=== PATIENT | male | born 1960 | race Caucasian/White ===

== ENCOUNTER 2024-01-06 16:29 | Emergency (ER) | payer BC, SELFPAY ==
[2024-01-06 16:35] VITALS: BP 146/87
--- NOTE | 2024-01-06 17:07 | ED.GENMED ---
History of Present Illness
General
Chief Complaint: Skin Problem
Time Seen by Provider: 01/06/24 17:06
History of Present Illness
History of Present Illness:
HPI: The patient presents due to bleeding of the distal right lower extremity. He is on Eliquis for history of factor V Leiden, DVT, PE. He has no significant pain. There is no significant injury. However, he was doing some manual work recently.
EXAM:
GENERAL: Well appearing in no distress
HEENT: Moist oral mucosa
NEUROLOGIC: Excellent strength all extremities, no obvious coordination deficits
PSYCHIATRIC: Appropriate mental status, normal insight and judgement
EXTREMITIES: Bilateral edema noted, see below
SKIN: Superficial varicosities noted to the right foot and ankle, there is a small area of active bleeding that is easily controlled with pressure
TIME OF INITIAL ENCOUNTER: 5:15 PM
NUMBER AND COMPLEXITY OF PROBLEMS ADDRESSED AT THE ENCOUNTER
� Chronic conditions affecting care: Chronic bronchitis, history of PE, CAD, high blood pressure, hyperlipidemia, GERD, diabetes, vasculitis
� Acute Exacerbation and/or Progression of Chronic Illness: This is an acute problem
� Differential Diagnosis includes: Varicose vein rupture, coagulopathy
AMOUNT AND/OR COMPLEXITY OF DATA TO BE REVIEWED AND ANALYZED
� I performed an independent evaluation of and my interpretation is:
EKG:
CT:
X-rays:
Laboratory Studies:
Other:
� Review of other/old records: I reviewed records, arterial study from 2019 ultrasound of the right lower extremity unremarkable
� Clinical information was obtained by an independent historian: I spoke to at bedside
� Prescriptions/Medications Considered but not given:
� Further testing considered but not performed:
RISK OF COMPLICATIONS AND/OR MORBIDITY OR MORTALITY OF PATIENT MANAGEMENT
� Social determinants of health affecting care: Lives at home
� Discussion with other providers:
� Escalation of care including admission/observation vs risk of discharge considered: I took the old dressing off and placed a new Surgicel pressure dressing with excellent hemostasis. I also give the patient additional supplies
if needed at home.
Past History
Past History
ED Past Medical History: Other (DVT, PE , Leiden factor 5)
ED Past Surgical History: None
Social History
Tobacco: Former smoker
Alcohol: None
Drug: None
Personal: Single
Living: with family
Employment: Employed
Family History
Family History: Other
Phy Exam
Physical Exam
Physical Exam:
See HPI
Course
Vital Signs
Initial and Last Documented VS:
Initial Vital Signs
Temp Pulse Resp BP Pulse Ox
98.3 F 98 20 146/87 95
01/06/24 16:35 01/06/24 16:35 01/06/24 16:35 01/06/24 16:35 01/06/24 16:35
Last Documented Vital Signs
Temp Pulse Resp BP Pulse Ox
98.3 F 98 20 146/87 95
01/06/24 16:35 01/06/24 16:35 01/06/24 16:35 01/06/24 16:35 01/06/24 16:35
*Critical Care Note
Total Time (30-74mins, 75-104mins- exclusive of procedures): Not Applicable
ED Attending Note
-
Portions of this chart may have been created with voice recognition software.� Occasional wrong word or��sound alike� substitutions may have occurred due to the inherent limitations of voice recognition software.
Discharge Plan
Departure
Patient Disposition: Home (Routine Discharge)
Date of Disposition: 01/06/24
Time of Disposition: 17:40
Patient with high blood pressure during this ER visit?: Yes
Discharge Problem:
Varicose vein of leg, Hemorrhage
Instructions: Varicose veins and other vein disease in the legs, Varicose Veins (DC)
Prescriptions:
No Action
atorvastatin 80 MG tablet
80 mg PO QPM Qty: 30 3RF
nitroglycerin 0.4 MG tablet, sublingual
0.4 mg sublingual [id number] PRN (Reason: chest pain) Qty: 25 3RF
carvedilol 6.25 MG tablet
6.25 mg PO BID Qty: 60 3RF
furosemide 40 MG tablet
40 mg PO DAILY Qty: 30 3RF
metformin 500 MG tablet
500 mg PO BID
clopidogrel 75 MG tablet
75 mg PO DAILY
potassium chloride [Klor-Con M20] 20 MEQ tablet,ER particles/crystals
20 meq PO DAILY
apixaban [Eliquis] 5 MG tablet
5 mg PO BID
lisinopril 5 MG tablet
10 mg PO BID
loteprednol etabonate [Lotemax] 5 ML drops,suspension
2.5 ml RIGHT EYE ONCE
Patient Comments:
Pt instilled x3 prior to arriving to hospital for surgery today 10/22/20. WM
bromfenac [Prolensa] 3 ML drops
1.6 ml RIGHT EYE ONCE
Patient Comments:
Pt instilled x1 prior to arriving to hospital for surgery today 10/22/20. BESIVANCE, PROLENSA , LOTEMAX . WM
Referrals:
Gunnar Cueto DO [Family Provider] -
Activity Restrictions/Additional Instructions:
I have given you more materials to use if bleeding recurs. Return here if worse. Try to keep the leg elevated is much as possible.
Interventions
Interventions:
*Risk Screen - Suicide Last Done: 01/06/24 16:35
*General Assessment Last Done: 01/06/24 16:35
*Neglect/Abuse Screening Last Done: 01/06/24 16:35
ED- Fall Risk Assessment Last Done: 01/06/24 17:13
*ED COVID-19 Vaccine History Last Done: 01/06/24 17:13
ED-Skin Assessment Last Done: 01/06/24 17:15
Discharge Date and Time
Print Language: ALBANIAN
[2024-01-06 17:13] VITALS: BMI 47.1
--- NOTE | 2024-01-06 17:58 | EDRN ---
Reviewed discharge instructions with patient. Verbalized understanding. Ambulated with steady gait to the lobby.
[2024-01-06 17:59] VITALS: BP 113/69
== END 2024-01-06 17:50 | disposition home or self-care (01) ==
LOC: EMR 16:29
PROVIDERS: EMERGENCY PHYSICIAN Emergency Medicine; FAMILY PHYSICIAN Family Medicine
DX: I83.891 Varicose veins of right lower extremity with other complications (principal); D68.51 Activated protein C resistance; Z79.01 Long term (current) use of anticoagulants; Z86.718 Personal history of other venous thrombosis and embolism; Z87.891 Personal history of nicotine dependence
CPT/HCPCS: 99282

== ENCOUNTER → 2024-04-23 08:30 | Outpatient (REF) | payer BC, SELFPAY | LOC: RCS 08:30 | PROVIDERS: ATTENDING PHYSICIAN Internal Medicine Cardiovascular Disease; FAMILY PHYSICIAN Family Medicine | DX: I50.32 Chronic diastolic (congestive) heart failure (principal) | CPT/HCPCS: 93307; Q9957 ==

== ENCOUNTER → 2024-09-07 10:52 | Outpatient (REF) | payer BC, SELFPAY | LOC: RAD 10:52 | PROVIDERS: ATTENDING PHYSICIAN Family Medicine | DX: M25.551 Pain in right hip (principal) | CPT/HCPCS: 72110; 73030; 73522 ==

== ENCOUNTER → 2024-09-17 13:14 | Outpatient (REF) | payer BC, SELFPAY ==
[2024-09-17 13:47] LABS: % Basophils 0.5 % (0-2); % Eosinophils 0.6 % (0-6); % Immature Granulocytes 0.4 % (0-0.5); % Lymphocytes 18.2 % (20.5-51.1); % Monocytes 8.7 % (1.7-9.3); % Neutrophils 71.6 % (42.2-75.2); Absolute Basophils 0.1 10^3/uL (0-0.2); Absolute Eosinophils 0.1 10^3/uL (0-0.7); Absolute Lymphocytes 1.9 10^3/uL (1.2-3.4); Absolute Monocytes 0.9 10^3/uL (0.1-0.6); Absolute Neutrophils 7.5 10^3/uL (1.4-6.5); Hematocrit 39.5 % (39.0-52.0); Hemoglobin 12.4 g/dL (13.0-18.0); Mean Corp Hgb Conc. 31.4 g/dL (33.0-37.0); Mean Corpuscular Hgb 30.2 pg (27.0-31.0); Mean Corpuscular Volume 96.1 fL (80.0-94.0); Mean Platelet Volume 8.9 fL (7.4-10.4); Nucleated Red Blood Cells % 0 % (-); Platelet Count 394 10^3/uL (130-400); Red Blood Cell Count 4.11 10^6/uL (4.70-6.10); Red Cell Dist. Width 13.2 % (11.5-14.5); White Blood Cell Count 10.4 10^3/uL (4.8-10.8)
[2024-09-17 14:11] LABS: Erythrocyte Sed Rate 33 mm/hour (0-20)
== END ==
LOC: REG 13:14
PROVIDERS: ATTENDING PHYSICIAN Student in an Organized Health Care Education/Training Program; FAMILY PHYSICIAN Family Medicine
DX: M25.552 Pain in left hip (principal)
CPT/HCPCS: 36415; 85025; 85652; 86140

== ENCOUNTER → 2024-09-18 13:16 | Outpatient (REF) | payer BC, SELFPAY ==
[2024-09-18 13:39] VITALS: BP 125/71; BP_SYST 103
[2024-09-18 14:27] VITALS: BP 130/75
== END ==
LOC: RADI 13:16
PROVIDERS: ATTENDING PHYSICIAN Student in an Organized Health Care Education/Training Program; FAMILY PHYSICIAN Family Medicine
DX: M25.551 Pain in right hip (principal); M16.11 Unilateral primary osteoarthritis, right hip
CPT/HCPCS: 20610; 77002; 87015; 87070; 87075; 87205

== ENCOUNTER → 2024-12-17 10:22 | Outpatient (REF) | payer BC, SELFPAY ==
[2024-12-17 11:00] LABS: % Basophils 0.6 % (0-2); % Eosinophils 0.9 % (0-6); % Immature Granulocytes 0.6 % (0-0.5); % Lymphocytes 17.8 % (20.5-51.1); % Monocytes 7.7 % (1.7-9.3); % Neutrophils 72.4 % (42.2-75.2); Absolute Basophils 0.1 10^3/uL (0-0.2); Absolute Eosinophils 0.1 10^3/uL (0-0.7); Absolute Immature Granulocytes 0.1 10^3/uL (0-0.05); Absolute Lymphocytes 1.9 10^3/uL (1.2-3.4); Absolute Monocytes 0.8 10^3/uL (0.1-0.6); Absolute Neutrophils 7.9 10^3/uL (1.4-6.5); Hematocrit 41.9 % (39.0-52.0); Hemoglobin 13.6 g/dL (13.0-18.0); Mean Corp Hgb Conc. 32.5 g/dL (33.0-37.0); Mean Corpuscular Volume 95.4 fL (80.0-94.0); Mean Platelet Volume 9.4 fL (7.4-10.4); Nucleated Red Blood Cells % 0 % (-); Platelet Count 329 10^3/uL (130-400); Red Blood Cell Count 4.39 10^6/uL (4.70-6.10); Red Cell Dist. Width 13.4 % (11.5-14.5); White Blood Cell Count 10.9 10^3/uL (4.8-10.8)
[2024-12-17 12:40] LABS: Erythrocyte Sed Rate 14 mm/hour (0-20)
== END ==
LOC: REG 10:22
PROVIDERS: ATTENDING PHYSICIAN Student in an Organized Health Care Education/Training Program; FAMILY PHYSICIAN Family Medicine
DX: M25.552 Pain in left hip (principal)
CPT/HCPCS: 36415; 85025; 85652; 86140